=== PATIENT | female | born 1990 | race Caucasian/White ===

== ENCOUNTER 2017-02-08 06:34 | Outpatient (CLI) | payer MEDICAID ==
[2017-02-08] VITALS (9 sets, daily range): BP systolic 119–144; BP diastolic 60–81; PULSE 93–104; TEMP 98.7
[~2017-02-08] VITALS: Ht 162.6 cm; Wt 123.2 kg
[~2017-02-08 06:34] MED LIST: BCP TD; CEFTIN500 MG PO; CIPRO 250MG TA250 MG PO; LEVAQUIN 5500 MG/TA1 PO; LORTAB 5/500 501 TAB PO; MACROBID 1100 MG/CAP PO; METRONIDAZOLE500 MG PO; MOTRIN 600600 MG/TAB PO; NO HOME MEDICATIONS; NORCO 325 MG-51 TAB PO; PHENERGAN W/CO120 M1 PO; PRENATAL MVI; PYRIDIUM 100MG100 MG PO; ZANTAC 150MG T150 MG PO; ZOFRAN4 M1 PO
== END 2017-02-08 11:45 | disposition home or self-care (01) ==
LOC: LDR 06:34 → LDRO 06:34 → LDR 06:59 → LDRO 11:45
DX: O26.893 Other specified pregnancy related conditions, third trimester (principal); Z3A.35 35 weeks gestation of pregnancy
CPT/HCPCS: OP; J0702; J7120

== ENCOUNTER 2017-02-14 21:32 | Outpatient (CLI) | payer MEDICAID ==
[~2017-02-14] VITALS: Ht 165.1 cm; Wt 122.7 kg
[2017-02-14 21:34] VITALS: BP 116/57; PULSE 105; TEMP 97.8
[2017-02-14] MEDS ORDERED: ZANTAC 150MG T150 MG PO (21:41)
== END 2017-02-14 23:08 | disposition home or self-care (01) ==
LOC: LDRO 21:32
DX: O62.9 Abnormality of forces of labor, unspecified (principal); Z3A.35 35 weeks gestation of pregnancy

== ENCOUNTER 2017-02-21 08:09 | Inpatient (IN) | payer MEDICAID ==
[~2017-02-21] VITALS: Ht 162.6 cm; Wt 121.8 kg
[2017-02-21] VITALS (35 sets, daily range): BP systolic 103–159; BP diastolic 54–83; PULSE 80–112; TEMP 97.9–98.1
[2017-02-21 09:32] LABS: ADD PATHOLOGY DIFF REVIEW NO; HEMATOCRIT 37.8 % (37.0-47.0); HEMOGLOBIN 12.7 g/dl (12.5-16.0); MEAN CELL VOLUME 88 fl (80.0-100.0); MEAN CORPUSCULAR HEMOGLOBIN 30 pg (27.0-31.0); MEAN CORPUSCULAR HGB CONC 34 g/dl (33.0-37.0); MEAN PLATELET VOLUME 10.2 fl (7.4-10.4); PLATELET COUNT 260 K/mm3 (130-400); RED BLOOD COUNT 4.31 M/mm3 (4.10-5.30); REDCELL DISTRIBUTION WIDTH-CV 13.3 % (11.5-14.5); WHITE BLOOD COUNT 13.4 K/mm3 (4.8-10.8)
[2017-02-21 10:00] LABS: BAND 13 % (0-10); EOSINOPHIL 2 % (0-4); NEUTROPHILS 57 % (42.0-75.2); TOTAL CELLS COUNTED 100
[2017-02-21 10:01] LABS: PLATELET ESTIMATE NORMAL (NORMAL)
[2017-02-22 07:30] VITALS: BP 128/63; PULSE 81; TEMP 97.6
[2017-02-22 16:40] VITALS: BP 124/68; PULSE 78; TEMP 98.1
[2017-02-22 20:00] VITALS: BP 133/68; PULSE 88; TEMP 97.4
[2017-02-23 07:15] VITALS: BP 124/69; PULSE 97; TEMP 97.7
== END 2017-02-23 14:25 | disposition home or self-care (01) | DRG 775 ==
LOC: LDRO 08:09 → OB 08:10 → LDR 08:10 → OB 16:30 → LDRO 03-04 16:25
PROVIDERS: Obstetrics & Gynecology
PROC: 10E0XZZ Delivery of Products of Conception, External Approach (ICD-10-PCS; principal; 2017-02-21)
DX: O60.14X0 Preterm labor third trimester with preterm delivery third trimester, not applicable or unspecified (principal); O99.824 Streptococcus B carrier state complicating childbirth; O35.8XX0 Maternal care for other (suspected) fetal abnormality and damage, not applicable or unspecified; Z3A.36 36 weeks gestation of pregnancy; Z37.0 Single live birth
CPT/HCPCS: J2405; J2540; J2590; J7120

== ENCOUNTER → 2019-04-10 | Outpatient (CLI) | payer BC | LOC: MC.RAD 07:30 | DX: N63.10 Unspecified lump in the right breast, unspecified quadrant (principal) ==

== ENCOUNTER → 2019-08-09 | Outpatient (CLI) | payer BC ==
[~2019-08-09] MED LIST changes: +SYNTHROID0.137 MG PO
== END ==
LOC: COL.RAD 09:30
DX: R91.1 Solitary pulmonary nodule (principal)

== ENCOUNTER 2019-10-17 10:26 | Emergency (ER) | payer BC ==
[~2019-10-17] VITALS: Ht 162.6 cm; Wt 140.9 kg
[2019-10-17 10:38] VITALS: TEMP 97.8
[2019-10-17 11:17] LABS: COLLECTION METHOD CLEAN CATCH
[2019-10-17 11:24] LABS: MUCOUS Present /lpf; PH 7 (5-8); SQUAMOUS EPITHELIAL 0-2 /hpf; URINE APPEARANCE Hazy; URINE BACTERIA Rare /hpf; URINE BILIRUBIN Negative (NEGATIVE); URINE BLOOD 1+ (NEGATIVE); URINE COLOR Yellow; URINE GLUCOSE Negative (NEGATIVE); URINE KETONE Negative (NEGATIVE); URINE LEUKOCYTE ESTERASE Trace (NEGATIVE); URINE NITRATE Negative (NEGATIVE); URINE PROTEIN(semi-quant) Negative (NEGATIVE); URINE UROBILINOGEN Negative (NEGATIVE)
[2019-10-17 11:28] LABS: BASO % 0.5 % (0.0-2.0); EOS # 0.1 (0.0-0.7); GRAN % 61.3 % (42.2-75.2); HEMATOCRIT 42.4 % (37.0-47.0); HEMOGLOBIN 14.1 g/dl (12.5-16.0); LYMPH # 2.4 (1.2-3.4); MEAN CELL VOLUME 90 fl (80.0-100.0); MEAN CORPUSCULAR HEMOGLOBIN 30 pg (27.0-31.0); MEAN CORPUSCULAR HGB CONC 33 g/dl (33.0-37.0); MEAN PLATELET VOLUME 9.5 fl (7.4-10.4); MONO # 0.6 (0.1-0.6); MONO % 6.8 % (1.7-9.3); PLATELET COUNT 289 K/mm3 (130-400); RED BLOOD COUNT 4.74 M/mm3 (4.10-5.30); REDCELL DISTRIBUTION WIDTH-CV 12.7 % (11.5-14.5)
[2019-10-17 11:43] LABS: ALBUMIN 4.4 gm/dL (3.5-5.0); BILIRUBIN,TOTAL 0.4 mg/dL (0.0-1.0); C-REACTIVE PROTEIN 1.3 mg/dL (0.0-0.9); CALCIUM 9.1 mg/dL (8.4-10.2); CREATININE, serum 0.64 (0.52-1.25); POTASSIUM 4.2 mmol/L (3.4-5.0); TOTAL PROTEIN 7.9 gm/dL (6.4-8.2)
[2019-10-17] MEDS ORDERED: ZOFRAN ODT4 MG PO (13:09)
[2019-10-17] MEDS ORDERED: NORCO 325 MG-51 TAB PO (13:09)
[2019-10-17 13:56] VITALS: BP 99/49; PULSE 72
== END 2019-10-17 14:00 | disposition home or self-care (01) ==
LOC: COL.ER 10:26
PROVIDERS: Emergency Medicine
DX: N20.0 Calculus of kidney (principal); E03.9 Hypothyroidism, unspecified; Z87.442 Personal history of urinary calculi; Z98.51 Tubal ligation status
CPT/HCPCS: J1170; J1885; J2405; J7030; Q9967

== ENCOUNTER → 2019-12-11 | Outpatient (CLI) | payer BC ==
[~2019-12-11] MED LIST changes: +ZOFRAN ODT4 MG PO
== END ==
LOC: COL.LAB 17:16
DX: B34.9 Viral infection, unspecified (principal); R50.9 Fever, unspecified; R05 Cough; R06.02 Shortness of breath

== ENCOUNTER → 2020-06-04 | Emergency (ER) | payer BC ==
[~2020-06-04] VITALS: Ht 162.6 cm; Wt 143.2 kg
[~2020-06-04] MED LIST changes: +OMNICEF 300MG300 MG PO
[2020-06-04 12:06] VITALS: BP 90/59; PULSE 133; TEMP 101.4
[2020-06-04 13:08] LABS: HEMATOCRIT 46.4 % (37.0-47.0); HEMOGLOBIN 15.5 g/dl (12.5-16.0); MEAN CELL VOLUME 88 fl (80.0-100.0); MEAN CORPUSCULAR HEMOGLOBIN 29 pg (27.0-31.0); MEAN CORPUSCULAR HGB CONC 33 g/dl (33.0-37.0); MEAN PLATELET VOLUME 9.7 fl (7.4-10.4); PLATELET COUNT 290 K/mm3 (130-400)
[2020-06-04 13:25] LABS: ALBUMIN 4.7 gm/dL (3.5-5.0); BILIRUBIN,TOTAL 0.6 mg/dL (0.0-1.0); C-REACTIVE PROTEIN 2.2 mg/dL (0.0-0.9); CALCIUM 9.2 mg/dL (8.4-10.2); CREATININE, serum 0.79 (0.52-1.25); POTASSIUM 4.1 mmol/L (3.4-5.0); TOTAL PROTEIN 8.3 gm/dL (6.4-8.2)
[2020-06-04 13:35] LABS: BAND 5 % (0-10); LYMPHOCYTE 3 % (20.0-51.0); NEUTROPHILS 90 % (42.0-75.2); PLATELET ESTIMATE NORMAL (NORMAL)
[2020-06-04 15:07] LABS: COLLECTION METHOD CLEAN CATCH
[2020-06-04 15:19] LABS: MUCOUS Present /lpf; PH 6 (5-8); URINE APPEARANCE Hazy; URINE BACTERIA None Seen /hpf; URINE BILIRUBIN Negative (NEGATIVE); URINE BLOOD 3+ (NEGATIVE); URINE COLOR Yellow; URINE GLUCOSE Negative (NEGATIVE); URINE KETONE Negative (NEGATIVE); URINE LEUKOCYTE ESTERASE Negative (NEGATIVE); URINE NITRATE Negative (NEGATIVE); URINE PROTEIN(semi-quant) 1+ (NEGATIVE); URINE RBC >50 /hpf; URINE UROBILINOGEN Negative (NEGATIVE)
== END ==
LOC: COL.ER 12:00
PROVIDERS: Physician Assistant
DX: N12 Tubulo-interstitial nephritis, not specified as acute or chronic (principal); R65.10 Systemic inflammatory response syndrome (SIRS) of non-infectious origin without acute organ dysfunction; E03.9 Hypothyroidism, unspecified; Z87.442 Personal history of urinary calculi; Z79.890 Hormone replacement therapy
CPT/HCPCS: J0692; J1170; J1885; J2405; J7030

== ENCOUNTER 2021-10-24 03:27 | Observation (INO) | payer BC ==
[2021-10-24] VITALS (7 sets, daily range): BP systolic 105–114; BP diastolic 51–65; PULSE 76–94; TEMP 98–98.7
[~2021-10-24] VITALS: Ht 162.6 cm; Wt 131.4 kg
[2021-10-24 04:06] LABS: COLLECTION METHOD CLEAN CATCH
[2021-10-24 04:21] LABS: MUCOUS Present (NOT PRESENT); PH 6 (5-8); URINE APPEARANCE Hazy (CLEAR/HAZY); URINE BACTERIA None Seen /hpf (NONE SEEN); URINE BILIRUBIN Negative (NEGATIVE); URINE BLOOD 2+ (NEGATIVE); URINE COLOR Yellow (YELLOW); URINE GLUCOSE Negative (NEGATIVE); URINE KETONE Negative (NEGATIVE); URINE LEUKOCYTE ESTERASE 2+ (NEGATIVE); URINE NITRATE Negative (NEGATIVE); URINE PROTEIN(semi-quant) 1+ (NEGATIVE); URINE UROBILINOGEN Negative (NEGATIVE)
[2021-10-24 04:29] LABS: BASO % 0.3 % (0.0-2.0); EOS # 0.1 K/mm3 (0.0-0.7); EOS % 0.8 % (0.0-4.0); GRAN # 9.1 K/mm3 (1.4-6.5); GRAN % 73.3 % (42.2-75.2); HEMATOCRIT 42.8 % (37.0-47.0); HEMOGLOBIN 14.3 g/dl (12.5-16.0); LYMPH # 2.4 K/mm3 (1.2-3.4); LYMPH % 19.4 % (20.0-51.0); MEAN CELL VOLUME 86 fl (80.0-100.0); MEAN CORPUSCULAR HEMOGLOBIN 29 pg (27-31); MEAN CORPUSCULAR HGB CONC 33 g/dl (33.0-37.0); MEAN PLATELET VOLUME 9.8 fl (7.4-10.4); MONO # 0.7 K/mm3 (0.1-0.6); MONO % 5.7 % (1.7-9.3); PLATELET COUNT 313 K/mm3 (130-400); RED BLOOD COUNT 4.96 M/mm3 (4.10-5.30); REDCELL DISTRIBUTION WIDTH-CV 12.8 % (11.5-14.5)
[2021-10-24 04:53] LABS: ALBUMIN 4.1 gm/dL (3.5-5.0); BILIRUBIN,TOTAL 0.5 mg/dL (0.2-1.2); C-REACTIVE PROTEIN 0.88 mg/dL (0.00-0.50); CALCIUM 8.9 mg/dL (8.4-10.2); CREATININE, serum 0.85 mg/dL (0.57-1.11); TOTAL PROTEIN 7.7 gm/dL (6.2-8.1)
[2021-10-24] MEDS ORDERED: EUTHYROX150 MCG PO (06:10)
--- NOTE | 2021-10-24 09:22 | NUR ---
SATURNINO met with the patient to discuss discharge plan. The patient lives in [place] with her , Daquan (ph#[phone]), their three children, and her in-laws. She reports independence with ADLs and does not have any DME. The patient's PCP is Dr. Deondre Benedict and she receives her medications from [facility] in . She reports no difficulties obtaining her meds. The patient does not have a DPOA-HC, but she was interested in obtaining a form. SATURNINO provided. The patient plans on returning home with her family upon discharge. No additional needs at this time. *Discharge plan: home with family*
[2021-10-24] MEDS ORDERED: NORCO 325 MG-51 TAB PO (11:37)
[2021-10-24] MEDS ORDERED: FLOMAX 0.40.4 MG/CAP PO (11:37)
--- NOTE | 2021-10-24 12:43 | NUR ---
PT TO ROOM 322 PER BED WITH REPORT FROM [facility] PACU @1230. PT A/O X4, LUNGS CTA. BOWEL SOUNDS PRESENT. PT UP TO BR WITH SBA, VOIDED AND RETURNED TO BED. VSS. AT BEDSIDE. PT DENIES NEEDS AT THIS TIME. REVIEWED DISCHARGE CRITERIA WITH PT AND SPOUSE. VERBALIZED UNDERSTANDING.
--- NOTE | 2021-10-24 15:50 | NUR ---
DISCHARGE INSTRUCTIONS REVIEWED WITH PT AND SPOUSE. QUESTIONS SOLICITED AND ANSWERED. PT LEFT UNIT BY WHEEL CHAIR.
== END 2021-10-24 16:24 | disposition home or self-care (01) ==
LOC: COL.ER 03:27 → SURG 05:44
PROVIDERS: Emergency Medicine; ADMIT Urology
DX: N20.1 Calculus of ureter (principal); N39.0 Urinary tract infection, site not specified; E03.9 Hypothyroidism, unspecified; Z96.0 Presence of urogenital implants; Z79.890 Hormone replacement therapy
CPT/HCPCS: C1769; C2617; G0378; J0690; J0696; J1170; J1885; J2405; J2704; J3010; J7030; J7120; Q9967